=== PATIENT | female | born 1990 | race Caucasian/White ===

== ENCOUNTER 2018-02-21 03:47 | Emergency (ER) | payer OTHER ==
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
== END 2018-02-21 04:56 | disposition home or self-care (01) ==
LOC: ERS 03:47
DX: S90.31XA Contusion of right foot, initial encounter (principal); X50.9XXA Other and unspecified overexertion or strenuous movements or postures, initial encounter